=== PATIENT | female | born 1985 | race Caucasian/White ===

== ENCOUNTER 2016-06-16 12:32 | Emergency (ER) | payer OTHER ==
[2016-06-16 12:43] VITALS: BP 123/67; PULSE 63; RESP 18; TEMP 98.6; O2SAT 99
--- NOTE | 2016-06-16 12:54 | EDPHY ---
HPI/HX/ROS/PE/MDM Narrative: CHIEF COMPLAINT: Left knee pain and injury HPI: The patient is a 30 y/o female arriving with her family member complaining of left knee pain after a skiing injury today. She describes her toes turning outwards, then hearing a "huge pop," and could no longer bear weight or walk. Her pain is primarily located anteriorly and posteriorly. She denies other injuries, head strike, or loss of consciousness. No weakness or paresthesias in her foot. She has no history of previous surgery or injury to this leg. REVIEW OF SYSTEMS: Aside from elements discussed in the HPI, a comprehensive 10-point review of systems was reviewed and is negative. PMH: Denies SOCIAL HISTORY: Family member at bedside PHYSICAL EXAM: General:Patient is alert, in no acute distress. ENT:Eyes are normal to inspection. ENT inspection normal. Neck: Normal inspection. Full range of motion. Respiratory:No respiratory distress. Breath sounds normal bilaterally. Cardiovascular: Regular rate and rhythm. Strong peripheral pulses. Normal cap refill. Abdomen:The abdomen is nontender to palpation. There are no peritoneal signs. There are normal bowel sounds. Back: Normal to inspection. No tenderness to palpation. Skin: Normal color. No rash. Warm and dry. Extremities: Left leg: stable, anterior drawer causes pain, mild swelling and posterior tenderness. Other extremities haven normal appearance and full range of motion. Neuro: Oriented x3. Normal motor function. Normal sensory function. ED Course: Study: Left knee x-ray Indication: Pain, trauma Results: Knee x-ray was obtained. The results of the study are . The study was read by the radiologist, . I viewed the images myself on the PACS system. MDM: This patient presents with acute knee injury. There is no sign of fracture. The patient will be placed in knee immobilizer and will follow up with an orthopedist for further testing. General Time Seen by Provider: 06/16/16 12:42 Initial Vital Signs: Initial Vital Signs Temperature (C) 37.0 C 06/16/16 12:37 Heart Rate 63 06/16/16 12:37 Respiratory Rate 18 06/16/16 12:37 Blood Pressure 123/67 H 06/16/16 12:37 O2 Sat (%) 99 06/16/16 12:37 O2 Delivery Mode Room Air Allergies/Adverse Reactions: Penicillins Allergy (Verified 06/16/16 12:33) Home Medications: Medication Instructions Recorded Adderall Xr 20 mg Capsule 10/03/14 oxyCODONE/APAP 5/325 [Percocet 1 - 2 tab PO Q4H PRN #20 tab 06/16/16 5/325 (*)] Departure - Departure Disposition: Home, Routine, Self-Care Clinical Impression: Left knee sprain Condition: Good Instructions: Knee Sprain (ED) Additional Instructions: 1. Rest. Apply ice to sore areas. Use 600mg ibuprofen 3 times daily for the next 2-3 days. 2. Take Percocet as prescribed when needed for pain. 3. Wear knee immobilizer until follow up. Use crutches to move around. Bear weight with your toe as tolerated. Okay to remove while bathing. 3. Follow up with Dr. Villeda, orthopedist, next week. You will likely need an MRI to further evaluate your injury. 4. Return to the ED for dramatic increase in swelling or pain, weakness or numbness in your foot, or other worsening of condition. Referrals: Denise Rodriguez FNP [Primary Care Provider] - As per Instructions Miguel Villeda MD [Medical Doctor] - As per Instructions Prescriptions: oxyCODONE/APAP 5/325 [Percocet 5/325 (*)] 1 - 2 tab PO Q4H PRN #20 tab PRN Reason: Pain, Severe Report Scribed for: Brian Price Report Scribed by: Jamia George Date of Report: 06/16/16 Time of Report: 12:43 Physician Review and Approval Statement: Portions of this note were transcribed by an ED scribe. I personally performed the history, physical exam, and medical decision making; and confirm the accuracy of the information in the transcribed note.
--- NOTE | 2016-06-16 13:06 | DX ---
Knee 3 Views Left History: Pain after injury. Comparison exam: None available. Findings: Normal alignment. Joint spaces are maintained. No fracture or joint effusion. Impression: Negative left knee radiographs.
== END 2016-06-16 13:39 | disposition home or self-care (01) ==
DX: S83.92XA Sprain of unspecified site of left knee, initial encounter (principal); X58.XXXA Exposure to other specified factors, initial encounter; Y99.8 Other external cause status; Y93.23 Activity, snow (alpine) (downhill) skiing, snowboarding, sledding, tobogganing and snow tubing
CPT/HCPCS: L1830